=== PATIENT | female | born 1990 | race Caucasian/White ===

== ENCOUNTER 2020-06-18 05:06 | Emergency (ER) | payer BC, SELFPAY ==
[~2020-06-18] VITALS: Ht 170.2 cm; Wt 68.0 kg
[2020-06-18 05:25] VITALS: BP_SYST 109
--- NOTE | 2020-06-18 05:25 | NUR ---
Patient to ER bed 7 to gown for evaluation. Side rails up.
--- NOTE | 2020-06-18 05:30 | NUR ---
pt a&o x4 from home c/o shortness of breath that started yesterday. pt reports it is difficult to take deep breath and causes her to cough. pain in throat and upper chest when deep breathe. pt reports testing positive for COVID 19 last wednesday. pt reports taking tylenol and ibuprofen around 3am. pt O2 sat is 97% on room air, afebrile, nauseous.
--- NOTE | 2020-06-18 05:45 | NUR ---
# 18 gauge angiocath placed to LEFT AC. Use of asceptic technique. Opsite placed over site. Blood return noted. Blood, blood cultures, and lactic for lab drawn from site. Flushed with 10 cc of normal saline. No evidence of infiltration noted. Patient tolerated well.
--- NOTE | 2020-06-18 05:51 | NUR ---
ER Dr. Montanez at bedside examining patient.
--- NOTE | 2020-06-18 05:54 | NUR ---
radiology at bedside for chest xray.
[2020-06-18 06:25] LABS: FIBRINOGEN 378 mg/dL (200-400)
--- NOTE | 2020-06-18 06:26 | NUR ---
critical lab reporting - COVID 19 positive. aware.
--- NOTE | 2020-06-18 06:50 | NUR ---
Dr. Montanez at bedside speaking with patient regarding plan of care.
--- NOTE | 2020-06-18 06:52 | NUR ---
pt reports she is still feeling short of breath, per md breathing tx has been ordered.
[2020-06-18] MEDS ORDERED: IPRATROPIUM/ALBUTEROL SULFATE 3 ML AMPUL.NEB (DUONEB) INH ONE (07:00)
--- NOTE | 2020-06-18 07:19 | NUR ---
report given to LORI Ramirez for continuation of care.
[2020-06-18] MEDS ORDERED: ALBMDI INH (07:39)
--- NOTE | 2020-06-18 07:43 | NUR ---
Pt receiving breathing tx at this time
[2020-06-18 08:34] VITALS: BP_SYST 108
--- NOTE | 2020-06-18 08:35 | NUR ---
Patient given written and verbal discharge instructions and verbalizes understanding. ER MD discussed with patient the results and treatment provided. Patient in stable condition. ID arm band removed. IV catheter removed intact and dressing applied, no active bleeding. Rx of Albuterol given. Patient educated on pain management and to follow up with PMD. Pain Scale 0/10. Opportunity for questions provided and answered. Medication side effect fact sheet provided.
== END 2020-06-18 08:34 | disposition home or self-care (01) ==
LOC: SED 05:06
DX: U07.1 COVID-19 (principal); R06.02 Shortness of breath
CPT/HCPCS: 36415; 71045; 85379; 85384-TC; 86140; 94640; 99284